=== PATIENT | female | born 1965 | race Caucasian/White ===

== ENCOUNTER 2023-03-29 10:57 | Emergency (ER) | payer BC ==
[2023-03-29] MEDS ORDERED: Sodium Chloride 0.9% 10 ML Syringe FLUSH PRN (14:00)
[2023-03-29 14:13] LABS: BASOPHILS ABSOLUTE AUTO 0.04 K/uL (0.00-0.10); BASOPHILS PERCENT AUTO 0.6 % (0.1-1.3); EOSINOPHILS PERCENT AUTO 0.3 % (0.0-5.4); HEMOGLOBIN 13.8 g/dL (11.2-15.5); IMMATURE GRAN PERCENT AUTO 0.3 % (0.0-0.7); LYMPHOCYTES ABSOLUTE AUTO 0.73 K/uL (0.8-3.3); LYMPHOCYTES PERCENT AUTO 11.2 % (11.4-47.7); MEAN CORPUSCULAR HEMOGLOBIN 29.8 pg (31.6-35.5); MEAN CORPUSCULAR HGB CONC 33.7 g/dL (31.6-35.5); MEAN CORPUSCULAR VOLUME 88.6 fL (81.4-99.0); MONOCYTES PERCENT AUTO 3.1 % (3.3-12.6); NEUTROPHILS PERCENT AUTO 84.5 % (40.0-78.1); PLATELET COUNT,PLT 187 K/uL (130-375); RED BLOOD CELL COUNT 4.63 M/uL (3.77-5.24); WHITE BLOOD CELL COUNT,WBC 6.5 K/uL (3.2-11.0)
[2023-03-29 14:17] LABS: EOSINOPHILS ABSOLUTE AUTO 0.02 K/uL (0.00-0.40); IMMATURE GRAN ABSOLUTE AUTO 0.02 K/uL (0.00-0.23)
[2023-03-29] MEDS ORDERED: Sodium Chloride 0.9% 75 ML IV ONE (14:20)
[2023-03-29] MEDS ORDERED: Iopamidol 755 Mg/ML 100 ML Bottle IV ONE (14:20)
[2023-03-29] MEDS ORDERED: Sodium Chloride 0.9% 10 ML Syringe FLUSH ONE (14:20)
[2023-03-29 14:33] LABS: INR 1.2; PROTHROMBIN TIME 11.6 sec (9.2-10.6); PTT,PARTIAL THROMBOPLSTIN TIME 28.5 sec (21.8-27.3)
[2023-03-29 14:36] LABS: A/G RATIO 1.3 (1.2-2.2); ALANINE AMINOTRANSFERASE,ALT 21 U/L (12-78); ALKALINE PHOSPHATASE 91 U/L (46-116); ASPARTATE AMNIOTRANSFERASE,AST 22 U/L (15-37); BILIRUBIN TOTAL 0.5 mg/dL (0.2-1.0); BLOOD UREA NITROGEN,BUN 15 mg/dL (7-18); CALCIUM 9.1 mg/dL (8.5-10.1); CARBON DIOXIDE,CO2 25 mmol/L (21-32); CHLORIDE,CL 101 mmol/L (100-108); CREATININE 0.9 mg/dL (0.6-1.0); EST CRCL DRUG DOSING (CG) 68.73 mL/min; ESTIMATED GFR 74 mL/min (>60); GLUCOSE RANDOM 166 mg/dL (74-106); POTASSIUM,K 3.8 mmol/L (3.6-5.2); PROTEIN TOTAL,TP 7.1 g/dL (6.4-8.2); SODIUM,NA 135 mmol/L (140-148); TROPONIN I HIGH SENSITIVITY 5.2 pg/mL (<=60.3)
[2023-03-29 14:38] LABS: ANION GAP 12.8 mmol/L (5.0-14.0)
[2023-03-29] MEDS ORDERED: Aspirin 81 MG Tab.Chew PO SCH (16:45)
== END 2023-03-29 17:08 | disposition home or self-care (01) ==
LOC: JP.ED 10:57
DX: R47.89 Other speech disturbances (principal)
CPT/HCPCS: 36415; 70450; 70496; 70498; 80053; 84484; 85025; 85610; 85730; 93005; 99284; A9270; J3490; Q9967